=== PATIENT | male | born 1950 | race Caucasian/White ===

== ENCOUNTER 2016-12-06 09:27 | Outpatient (CLI) | payer OTHER ==
--- NOTE | 2016-12-06 10:59 | XRay Report ---
XRAY RIGHT KNEE FOUR VIEWS: 12/06/16 09:27:00 CLINICAL: Right knee pain. FINDINGS: Medial joint space narrowing with no osteophytes. Slight widening of the lateral joint space. Patellofemoral joint osteoarthritis with small osteophytes. A quadriceps enthesophyte. No joint effusion. No fracture or dislocation. Normal soft tissues. 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
== END 2016-12-06 09:28 | disposition home or self-care (01) ==
LOC: SPVIMAG 09:27
PROVIDERS: ATTEND Orthopaedic Surgery Sports Medicine
DX: M17.11 Unilateral primary osteoarthritis, right knee (principal)